=== PATIENT | male | born 1975 | race Two or more races ===

== ENCOUNTER 2022-01-26 17:13 | Emergency (ER) | payer OTHER ==
[~2022-01-26] VITALS: Ht 165.1 cm; Wt 64.4 kg
[2022-01-26] MEDS ORDERED: MIRALAX510 GM PO (23:28)
[2022-01-26] MEDS ORDERED: ANALPRAM HC 2.530 GM RECTAL (23:28)
== END 2022-01-26 23:31 | disposition home or self-care (01) ==
LOC: ER 17:13
DX: K59.00 Constipation, unspecified (principal)